=== PATIENT | female | born 1995 | race Caucasian/White ===

== ENCOUNTER 2022-12-25 01:57 | Observation (INO) | payer OTHER ==
[2022-12-25] MEDS ORDERED: ACETAMINOPHEN 500 MG TABLET (FP) PO ONE (02:16)
[2022-12-25] MEDS ORDERED: LIDOCAINE 5% TOPICAL PATCH TP ONE ×2 (02:17→02:22)
[2022-12-25] MEDS ORDERED: diazePAM 5 MG TABLET PO ONE (02:22)
[2022-12-25] MEDS ORDERED: DEXAMETHASONE SOD PHOSPHATE 10 MG/1 ML VIAL IM ONE (02:23)
[2022-12-25] MEDS ORDERED: LIDOCAINE 4% PATCH TP ONE (02:28)
[2022-12-25] MEDS ORDERED: diazePAM 5 MG TABLET ONE (02:28)
[2022-12-25] MEDS ORDERED: DEXAMETHASONE SOD PHOSPHATE 10 MG/1 ML VIAL ONE (02:28)
[2022-12-25] MEDS ORDERED: ACETAMINOPHEN 325 MG TABLET (FP) ONE (02:28)
[2022-12-25] MEDS ORDERED: morphine CARPU-JECT 4 MG/1 ML DISP.SYRIN IVPUSH ONE (03:58)
[2022-12-25 04:07] LABS: BASO % 0.7 % (0-2.0); EOS % 0.9 % (0-4.5); HEMATOCRIT 41.5 % (32.4-45.2); HEMOGLOBIN 14.2 GM/dL (10.7-15.3); LYMPH % 17.4 % (8-40); MCH 27.6 pg (25.7-33.7); MCHC 34.2 g/dl (32.0-36.0); MEAN CELL VOLUME 80.7 fl (80-96); MEAN PLT VOLUME 8.1 fl (7.5-11.1); MONO % 2.9 % (3.8-10.2); NEUT % 78.1 % (42.8-82.8); PLATELET COUNT 300 10^3/uL (134-434); RBC 5.15 M/mm3 (3.60-5.2); RDW 13.7 % (11.6-15.6); WHITE BLOOD COUNT 10.2 K/mm3 (4.0-10.0)
[2022-12-25] MEDS ORDERED: morphine SULFATE 4 MG/ML VIAL ONE (04:07)
[2022-12-25] MEDS ORDERED: morphine CARPU-JECT 2 MG/1 ML DISP.SYRIN IVPUSH ONE (05:41)
[2022-12-25] MEDS ORDERED: KETOROLAC TROMETHAMINE 30 MG/1 ML VIAL IVPUSH PRN ×2 (05:47→13:00)
[2022-12-25 06:05] LABS: POTASSIUM 4.2 mmol/L (3.5-5.1)
[2022-12-25 06:06] LABS: ALBUMIN 3.6 g/dl (3.4-5.0); BLOOD UREA NITROGEN 13.2 mg/dL (7-18); CALCIUM 9.1 mg/dL (8.5-10.1)
[2022-12-25] MEDS ORDERED: KETOROLAC TROMETHAMINE 30 MG/1 ML VIAL IM PRN (06:08)
[2022-12-25 06:09] LABS: CREATININE 0.8 mg/dL (0.55-1.3)
[2022-12-25 06:12] LABS: BILIRUBIN,TOTAL 0.2 mg/dL (0.2-1); TOT PROT 7.4 g/dl (6.4-8.2)
[2022-12-25] MEDS ORDERED: SODIUM CHLORIDE 1,000 ML IV SCH ×2 (06:30→07:16)
[2022-12-25 06:49] LABS: HEMATOCRIT 42.4 % (32.4-45.2); HEMOGLOBIN 13.7 GM/dL (10.7-15.3); MCH 26.6 pg (25.7-33.7); MCHC 32.2 g/dl (32.0-36.0); MEAN CELL VOLUME 82.5 fl (80-96); MEAN PLT VOLUME 8.6 fl (7.5-11.1); PLATELET COUNT 308 10^3/uL (134-434); RBC 5.14 M/mm3 (3.60-5.2); RDW 13.6 % (11.6-15.6)
[2022-12-25] MEDS ORDERED: ONDANSETRON 4 MG/2 ML VIAL IVPUSH PRN (07:12)
[2022-12-25 07:14] LABS: PHOSPHOROUS 2.4 mg/dL (2.5-4.9)
[2022-12-25] MEDS ORDERED: morphine CARPU-JECT 4 MG/1 ML DISP.SYRIN IVPUSH PRN (07:15)
[2022-12-25] MEDS ORDERED: KETOROLAC TROMETHAMINE 30 MG/1 ML VIAL IVPUSH ONE (07:15)
[2022-12-25] MEDS ORDERED: KETOROLAC TROMETHAMINE 30 MG/1 ML VIAL ONE (07:23)
[2022-12-25] MEDS ORDERED: ACETAMINOPHEN 325 MG TABLET (FP) PO PRN (08:38)
[2022-12-25] MEDS ORDERED: oxyCODONE HCL 5 MG TABLET PO PRN (08:42)
[2022-12-25 09:12] LABS: ERYTHROCYTE SEDIMENTATION RATE 16 mm/hr (0-20)
[2022-12-25 13:01] VITALS: BMI 42.4
[2022-12-25] MEDS ORDERED: LIDOCAINE PATCH REMOVAL MC ONE ×2 (14:00)
[2022-12-25] MEDS: diazePAM 5 MG TABLET PO SCH ×2 (14:53→21:42)
[2022-12-26] MEDS: diazePAM 5 MG TABLET PO SCH ×2 (04:42→06:29)
[2022-12-26] MEDS ORDERED: traMADol HCL 50 MG TABLET PO PRN (07:41)
[2022-12-26] MEDS ORDERED: methylPREDNISolone 4 MG TABLET PO ONE (07:42)
[2022-12-26] MEDS: IBUPROFEN 600 MG TABLET (FP) PO SCH ×3 (09:02→21:16)
[2022-12-26] MEDS ORDERED: LIDOCAINE 5% TOPICAL PATCH TP SCH (10:00)
[2022-12-26 11:09] LABS: BASO % 0.3 % (0-2.0); EOS % 0.3 % (0-4.5); HEMATOCRIT 39.2 % (32.4-45.2); HEMOGLOBIN 13.1 GM/dL (10.7-15.3); LYMPH % 23.2 % (8-40); MCH 27.2 pg (25.7-33.7); MCHC 33.4 g/dl (32.0-36.0); MEAN CELL VOLUME 81.3 fl (80-96); MEAN PLT VOLUME 8.7 fl (7.5-11.1); NEUT % 72.2 % (42.8-82.8); PLATELET COUNT 321 10^3/uL (134-434); RBC 4.83 M/mm3 (3.60-5.2); RDW 13.7 % (11.6-15.6); WHITE BLOOD COUNT 13.8 K/mm3 (4.0-10.0)
[2022-12-26 11:38] LABS: POTASSIUM 3.7 mmol/L (3.5-5.1)
[2022-12-26 11:49] LABS: ALBUMIN 3.4 g/dl (3.4-5.0)
[2022-12-26 11:50] LABS: BLOOD UREA NITROGEN 11.2 mg/dL (7-18)
[2022-12-26 11:53] LABS: CREATININE 0.8 mg/dL (0.55-1.3)
[2022-12-26 11:54] LABS: BILIRUBIN,TOTAL 0.3 mg/dL (0.2-1); TOT PROT 7.1 g/dl (6.4-8.2)
[2022-12-26] MEDS: ACETAMINOPHEN 325 MG TABLET (FP) PO SCH ×2 (12:04→19:19)
[2022-12-26] MEDS: LIDOCAINE 4% PATCH TP SCH (12:05)
[2022-12-26] MEDS: LIDOCAINE PATCH REMOVAL MC SCH ×2 (22:15→22:23)
[2022-12-27] MEDS: ACETAMINOPHEN 325 MG TABLET (FP) PO SCH ×3 (00:25→12:15)
[2022-12-27] MEDS: IBUPROFEN 600 MG TABLET (FP) PO SCH ×3 (02:22→15:08)
[2022-12-27 06:29] VITALS: RESP 18
[2022-12-27] MEDS ORDERED: methylPREDNISolone 4 MG TABLET PO ONE (10:00)
[2022-12-27] MEDS ORDERED: LIDOCAINE 4% PATCH TP SCH (10:30)
[2022-12-27] MEDS: LIDOCAINE 4% PATCH TP SCH (10:38)
[2022-12-27 15:15] VITALS: BP 115/75; PULSE 75; TEMP 98
== END 2022-12-27 16:42 | disposition home or self-care (01) ==
LOC: JER 01:57 → JERBED 05:44 → J5S 08:22
PROVIDERS: ADMIT Internal Medicine; ATTEND Internal Medicine
PROC: 3E023GC Introduction of Other Therapeutic Substance into Muscle, Percutaneous Approach (ICD-10-PCS; principal; 2022-12-25)
PROC: 3E0333Z Introduction of Anti-inflammatory into Peripheral Vein, Percutaneous Approach (ICD-10-PCS; 2022-12-25)
PROC: 3E033NZ Introduction of Analgesics, Hypnotics, Sedatives into Peripheral Vein, Percutaneous Approach (ICD-10-PCS; 2022-12-25)
PROC: 3E0337Z Introduction of Electrolytic and Water Balance Substance into Peripheral Vein, Percutaneous Approach (ICD-10-PCS; 2022-12-25)
DX: M54.59 Other low back pain (principal); J45.909 Unspecified asthma, uncomplicated; E28.2 Polycystic ovarian syndrome
CPT/HCPCS: 36415; 72131-TC; 80053; 83735; 84100; 84703; 85025; 85027; 85651; 86140; 93005; 93010; 96361; 96372; 96374; 96375; 96376; 97116-GP; 97162-GP; 99285-25; G0378; J1100

== ENCOUNTER 2023-07-03 09:21 | Emergency (ER) | payer OTHER, BC ==
[2023-07-03 09:46] VITALS: BP 137/62; PULSE 73; RESP 18; TEMP 98; BMI 42.2
== END 2023-07-03 10:48 | disposition home or self-care (01) ==
LOC: JERFT 09:21
DX: J40 Bronchitis, not specified as acute or chronic (principal); Z20.822 Contact with and (suspected) exposure to COVID-19
CPT/HCPCS: 0241U-QW; 71046-TC-FY; 99284-25

== ENCOUNTER → 2023-07-17 | Emergency (ER) | payer BC, OTHER ==
[~2023-07-17] MED LIST: ACETAMINOPHEN 500 MG TABLET (FP) ONE; ALBUTEROL SO4 2.5/IPRATROPIUM 0.5 INH SOL 3 ML VIAL.NEB. NEB ONE; FAMOTIDINE 20 MG TABLET ONE; predniSONE 20 MG TABLET (UD) ONE
[2023-07-17 18:32] VITALS: BMI 41.5
[2023-07-17 21:00] LABS: BASO % 0.5 % (0-2.0); EOS % 1.2 % (0-4.5); HEMATOCRIT 43.2 % (32.4-45.2); HEMOGLOBIN 14.2 GM/dL (10.7-15.3); LYMPH % 23.9 % (8-40); MCH 27.1 pg (25.7-33.7); MCHC 32.9 g/dl (32.0-36.0); MEAN CELL VOLUME 82.3 fl (80-96); MEAN PLT VOLUME 8.4 fl (7.5-11.1); MONO % 5.8 % (3.8-10.2); NEUT % 68.6 % (42.8-82.8); PLATELET COUNT 274 10^3/uL (134-434); RBC 5.25 M/mm3 (3.60-5.2); RDW 13.9 % (11.6-15.6); WHITE BLOOD COUNT 11.8 K/mm3 (4.0-10.0)
[2023-07-17 21:07] LABS: INR 0.98 (0.83-1.09); PROTHROMBIN TIME (PATIENT) 11.1 SEC (9.7-13.0)
[2023-07-17 21:10] LABS: ACTIVATED PTT 35.5 SECONDS (25.2-36.5)
[2023-07-17] MEDS: ACETAMINOPHEN 500 MG TABLET (FP) PO ONE (21:19)
[2023-07-17] MEDS: predniSONE 20 MG TABLET (UD) PO ONE (21:21)
[2023-07-17] MEDS: FAMOTIDINE 20 MG TABLET PO ONE (21:21)
[2023-07-17 21:28] LABS: POTASSIUM 3.6 mmol/L (3.5-5.1)
[2023-07-17] MEDS: ALBUTEROL SO4 2.5/IPRATROPIUM 0.5 INH SOL 3 ML VIAL.NEB. NEB SCH (21:28)
[2023-07-17 21:30] LABS: BLOOD UREA NITROGEN 9.4 mg/dL (7-18); CALCIUM 9.4 mg/dL (8.5-10.1)
[2023-07-17 21:33] LABS: CREATININE 0.7 mg/dL (0.55-1.3)
[2023-07-17 21:35] LABS: BILIRUBIN,TOTAL 0.4 mg/dL (0.2-1); TOT PROT 7.8 g/dl (6.4-8.2)
[2023-07-17 22:58] VITALS: BP 121/72; PULSE 89; RESP 20; TEMP 98.1
== END | disposition home or self-care (01) ==
LOC: JER 18:25
PROC: 3E0F7GC Introduction of Other Therapeutic Substance into Respiratory Tract, Via Natural or Artificial Opening (ICD-10-PCS; principal; 2023-07-17)
DX: R06.02 Shortness of breath (principal); R06.9 Unspecified abnormalities of breathing; J06.9 Acute upper respiratory infection, unspecified; R05.9 Cough, unspecified; R07.2 Precordial pain; R68.83 Chills (without fever); Z20.822 Contact with and (suspected) exposure to COVID-19
CPT/HCPCS: 0241U-QW; 36415; 71046-TC-FY; 80053; 84484; 85025; 85610; 85730; 93005; 93010; 99285-25